=== PATIENT | female | born 1985 | race Caucasian/White ===

== ENCOUNTER 2021-04-26 08:16 | Emergency (ER) | payer MEDICAID ==
[~2021-04-26] VITALS: Ht 162.6 cm; Wt 72.7 kg
[2021-04-26 08:18] VITALS: BP 14/89
[2021-04-26] MEDS ORDERED: buprenorphine/naloxone 8MG-2MG SUBlingual film SL STA (08:38)
== END 2021-04-26 09:22 | disposition home or self-care (01) ==
LOC: ER 08:17
DX: F11.20 Opioid dependence, uncomplicated (principal); J44.9 Chronic obstructive pulmonary disease, unspecified; Z88.5 Allergy status to narcotic agent
CPT/HCPCS: 99283